=== PATIENT | male | born 1955 | race Caucasian/White ===

== ENCOUNTER 2017-04-16 07:09 | Day surgery (SDC) | payer BC, OTHER ==
[~2017-04-16 07:09] MED LIST: Midazolam 1 MG/ML 2 ML SDV ONE; fentaNYL 100 MCG/2 ML SDV ONE
[2017-04-16] MEDS ORDERED: Midazolam 1 MG/ML 2 ML SDV IV ONE ×7 (07:10→08:14)
[2017-04-16] MEDS ORDERED: fentaNYL 100 MCG/2 ML SDV IV ONE ×3 (07:10→08:09)
[2017-04-16] MEDS ORDERED: Sodium Chloride 0.9% 10 ML Syringe FLUSH PRN (08:00)
[2017-04-16] MEDS ORDERED: Dextrose 5%-0.45% NaCl 1,000 ML IV SCH (08:00)
--- NOTE | 2017-04-16 12:12 | OR ---
DATE: 04/16/2017 PROCEDURE: Total colonoscopy. INSTRUMENT USED: CF-H180 AL Olympus video colonoscope. PREMEDICATIONS: Fentanyl 100 mcg intravenous, Versed 4 mg intravenous. Nasal O2 cannula. The procedure was done under pulse oximetry, BP recording, and phototypesetting equipment monitor. INDICATION: The patient with rectal bleeding. Colonoscopic examination is done for detection of any polypoid lesions and removal, endoscopic hemostasis therapy if needed. DESCRIPTION OF PROCEDURE: Initial rectal exam showed external hemorrhoidal tags. Rigid anoscopy showed moderate-sized internal hemorrhoids without bleeding from them. The colonoscope was passed with ease. Scattered diverticula were noted in the distal left colon along with some deformity. The scope was passed with ease up to the ileocecal area. Photographs were taken of the normal-appearing cecum identified by landmarks of appendiceal orifice and double-bulged ileocecal folds. No bleeding was noted from any of the visualized areas at the commencement of the examination. No stricture. No vascular ectasia. No large isolated ulcerations seen. No evidence of diffuse inflammatory bowel disease in the form of friability, contact bleeding, or ulcerations. No polyp or tumor mass identified. Probing the proximal sides of folds and flexures using adequate distention and clearing up the stool material, withdrawal of the scope was made. Cecum to rectum time over 6 minutes. No bleeding was noted from any of the visualized areas at the completion of examination. IMPRESSION: 1. External and internal hemorrhoids. 2. Diverticulosis. The patient tolerated the procedure well. [facility] /[id number]
== END 2017-04-16 10:20 | disposition home or self-care (01) ==
LOC: DL.ENDO 07:09
PROVIDERS: ATTEND Internal Medicine Gastroenterology
DX: K64.8 Other hemorrhoids (principal); E78.5 Hyperlipidemia, unspecified; K64.4 Residual hemorrhoidal skin tags; K57.30 Diverticulosis of large intestine without perforation or abscess without bleeding; Z98.890 Other specified postprocedural states; Z98.52 Vasectomy status
CPT/HCPCS: 45378; J7042; J2250; J3010

== ENCOUNTER 2020-06-15 06:31 | Day surgery (SDC) | payer OTHER ==
[~2020-06-15 06:31] MED LIST changes: +Dextrose 5%-0.45% NaCl 1,000 ML IV SCH; +Sodium Chloride 0.9% 10 ML Syringe FLUSH PRN
[2020-06-15] MEDS ORDERED: fentaNYL 100 MCG/2 ML SDV IV ONE ×3 (06:32→07:30)
[2020-06-15] MEDS ORDERED: Midazolam 1 MG/ML 2 ML SDV IV ONE ×6 (06:32→07:37)
--- NOTE | 2020-06-15 12:36 | OR ---
DATE: 06/15/2020 PROCEDURE: Total colonoscopy. INSTRUMENT USED: PCF-H190DL Olympus video colonoscope. PREMEDICATIONS: Fentanyl 100 mcg intravenous, Versed 4 mg intravenous. Nasal O2 cannula. The procedure was done under pulse oximetry, BP recording, and color television console monitor. INDICATION: The patient with persistent left-sided abdominal pain, unexplained and not responsive to medical measures. Colonoscopic examination is done for detection of any polypoid lesions and removal, endoscopic hemostasis therapy if needed. DESCRIPTION OF PROCEDURE: Initial rectal exam was unremarkable. Rigid anoscopy was normal. The colonoscope was passed with ease. Few scattered diverticula were noted in the distal colon along with some deformity. The scope was passed with ease up to the ileocecal area. Photographs were taken of the normal- appearing cecum, identified by landmarks of appendiceal orifice and double- bulged ileocecal folds. No bleeding was noted from any of the visualized areas at the commencement of the examination. The bowel preparation was found to be adequate, [place] scale 3 in all the regions. No stricture. No vascular ectasia. No large isolated ulcerations seen. No evidence of diffuse inflammatory bowel disease in the form of friability, contact bleeding, or ulcerations. No polyp or tumor mass identified. Probing the proximal sides of folds and flexures using adequate distention and clearing up the stool material, withdrawal of the scope was made, cecum to rectum time over 6 minutes. No bleeding was noted from any of the visualized areas at the completion of examination. IMPRESSION: Diverticulosis. The patient tolerated the procedure well. [facility] /[id number]
== END 2020-06-15 09:53 | disposition home or self-care (01) ==
LOC: DL.ENDO 06:31
PROVIDERS: ATTEND Internal Medicine Gastroenterology
DX: K57.30 Diverticulosis of large intestine without perforation or abscess without bleeding (principal); Z91.09 Other allergy status, other than to drugs and biological substances
CPT/HCPCS: 45378; J2250; J3010; J7042

== ENCOUNTER 2024-06-17 07:05 | Day surgery (SDC) | payer MEDICARE, BC ==
[2024-06-17] MEDS ORDERED: fentaNYL 100 MCG/2 ML SDV IV ONE (07:22)
[2024-06-17] MEDS ORDERED: Midazolam 1 MG/ML 2 ML SDV IV ONE (07:22)
[2024-06-17] MEDS ORDERED: Midazolam 1 MG/ML 2 ML SDV ONE (07:22)
[2024-06-17] MEDS ORDERED: fentaNYL 100 MCG/2 ML SDV ONE (07:22)
[2024-06-17] MEDS: Dextrose 5%-0.45% NaCl 1,000 ML IV SCH (07:34)
[2024-06-17] MEDS: fentaNYL 100 MCG/2 ML SDV IV ONE ×2 (07:48)
[2024-06-17] MEDS: Midazolam 1 MG/ML 2 ML SDV IV ONE ×2 (07:49)
== END 2024-06-17 09:33 | disposition home or self-care (01) ==
LOC: DL.ENDO 07:05
PROVIDERS: ATTEND Internal Medicine Gastroenterology
DX: R13.10 Dysphagia, unspecified (principal); K21.9 Gastro-esophageal reflux disease without esophagitis; E78.5 Hyperlipidemia, unspecified; R05.9 Cough, unspecified
CPT/HCPCS: J2250; J3010